=== PATIENT | female | born 1935 | race Two or more races ===

== ENCOUNTER 2019-05-02 06:43 | Day surgery (SDC) | payer MEDICAID, MEDICARE ==
--- NOTE | 2019-05-01 12:21 | NUR ---
[employer] translation services used to obtained medical history with paleologist Kat ID# [id number].
--- NOTE | 2019-05-01 15:10 | Pre-Procedure Note/Attestation ---
Pre-Procedure Note/Attestation Complete Prior to Procedure Planned Procedure: right Procedure Narrative: Cataract extraction with intraocular lens implant right eye Indications for Procedure Pre-Operative Diagnosis: Nuclear Sclerotic Cataract Right Eye Attestation I attest that I discussed the nature of the procedure; its benefits; risks and complications; and alternatives (and the risks and benefits of such alternatives ), prior to the procedure, with the patient (or the patient's legal service center representative). I attest that, if there was a reasonable possibility of needing a blood transfusion, the patient (or the patient's legal service center representative) was given the [facility] standardized written summary, pursuant to the Abdulaziz Reji Blood Safety Act ([place] Health and Safety Code # 1645, as amended). I attest that I re-evaluated the patient just prior to the surgery and that there has been no change in the patient's H&P, except as documented below: Tripp Muñoz MD May 01, 2019 15:10
--- NOTE | 2019-05-01 15:12 | Opthalmology H&P ---
Ophthalmology H&P H&P Chief Complaint: decreased vision in right eye HPI Vision Affects Ability to: read, watch TV, manage personal affairs HPI Narrative Blurry vision Exam Visual Acuity: OD 20/200 OS 20/40 Tension: OD 16 OS 17 Eye Exam: normal OU: external exam, palpebral fissure-width, marginal reflex distance, levator function, corneas, anterior chambers, lens - NS Cataract OU, fundus exam - NPDR OS /ERM OU; findings: lens - NS Cataract OU, fundus exam - NPDR OS /ERM OU Assessment/Plan Treatment Plan: cataract extraction w/ lens implant Goals of Treatment: improvement of vision, enhance quality of life Attestation Attestation The risks and benefits of the surgery as well as alternative procedures were explained to the patient in detail. Tripp Muñoz MD May 01, 2019 15:12
[2019-05-02] VITALS (11 sets, daily range): BP systolic 129–160; BP diastolic 57–82
[~2019-05-02] VITALS: Ht 154.9 cm; Wt 55.8 kg
[~2019-05-02 06:43] MED LIST: GLUCOSAMINE1000 M1 PO; LISINOPRIL5 MG ORAL; OMEGA-31000 M1 PO; ZOCOR10 MG ORAL
[2019-05-02] MEDS ORDERED: Akten 3.5% 1ml Btl RIGHT EYE ONE (07:00)
[2019-05-02] MEDS ORDERED: Proparacaine 0.5% Opth Soln 15ml RIGHT EYE ONE (07:00)
[2019-05-02] MEDS ORDERED: Pilocarpine 1% Opth 15ml Soln ONE (07:00)
[2019-05-02] MEDS ORDERED: Tetracaine 0.5% Opth 4ml Soln RIGHT EYE ONE (07:00)
[2019-05-02] MEDS ORDERED: Maxitrol Opth Oint 3.5gm ONE (07:00)
[2019-05-02] MEDS ORDERED: Pred Forte 1% Opth Susp 1ml ONE (07:00)
[2019-05-02] MEDS ORDERED: Dexamethasone 4mg/ml vial ONE (07:00)
[2019-05-02] MEDS: Phenylephrine 10% Opth Soln 5ml RIGHT EYE SCH ×3 (08:31→09:02)
[2019-05-02] MEDS: Cyclopentolate 1% Opth Sol 2ml RIGHT EYE SCH ×3 (08:32→09:01)
[2019-05-02] MEDS: Tropicamide 1% Opth 15ml Soln RIGHT EYE SCH ×3 (08:34→09:01)
[2019-05-02] MEDS: Diclofenac Sod 0.1% Op Soln RIGHT EYE SCH ×3 (08:34→09:02)
[2019-05-02] MEDS: Tobramycin Op Soln 0.3% 5ml RIGHT EYE SCH ×3 (08:35→09:02)
[2019-05-02] MEDS ORDERED: EPINEPHrine 1mg/1ml Amp ONE (09:31)
[2019-05-02] MEDS ORDERED: Povidone-Iodine 5% opth solution ONE (09:32)
[2019-05-02] MEDS ORDERED: Sodium Hyaluronate 14 mg/ml 0.85ml ONE (09:32)
[2019-05-02] MEDS ORDERED: BSS 500ml btl ONE (09:32)
[2019-05-02] MEDS ORDERED: BSS 15ml BTL ONE (09:32)
[2019-05-02] MEDS ORDERED: LR 1000ml ONE (11:00)
[2019-05-02] MEDS ORDERED: NS Irrig 1000ml ONE (11:00)
[2019-05-02] MEDS ORDERED: Sterile Water Irrig 1000ml IRRIG ONE (11:00)
[2019-05-02] MEDS ORDERED: fentaNYL 100 mcg/2 mL IV ONE (11:17)
[2019-05-02] MEDS ORDERED: Midazolam 2mg/2ml Inj ONE (11:19)
--- NOTE | 2019-05-02 11:35 | Anethesia Preoperative Eval ---
Anesthesia Pre-op PMH/ROS General Date of Evaluation: May 02, 2019 Time of Evaluation: 10:25 Anesthesiologist: shoshana ASA Score: ASA 2 Mallampati Score Class I : Soft palate, uvula, fauces, pillars visible Class II: Soft palate, uvula, fauces visible Class III: Soft palate, base of uvula visible Class IV: Only hard plate visible Mallampati Classification: Class II Surgeon: cadence Diagnosis: cataract Surgical Procedure: cataract extraction Anesthesia History: none Family History: no anesthesia problems Allergies: Coded Allergies: SULFA (SULFONAMIDE ANTIBIOTICS) (Verified Allergy, Mild, rash, 05/01/19) Medications: see eMAR Patient NPO?: Yes NPO Date: May 02, 2019 NPO Time: 00:01 Past Medical History Cardiovascular: Reports: HTN; Denies: CAD, SC, valve dz, arrhythmia, other Pulmonary: Denies: asthma, COPD, LAURIE, other Gastrointestinal/Genitourinary: Denies: GERD, CRI, ESRD, other Neurologic/Psychiatric: Denies: dementia, CVA, depression/anxiety, TIA, other Endocrine: Denies: DM, hypothyroidism, steroids, other HEENT: Reports: cataract (R); Denies: cataract (L), glaucoma, MI'KMAQ (L), MI'KMAQ (R), other Hematology/Immune: Denies: anemia, DVT, bleeding disorder, other Musculoskeletal/Integumentary: Denies: OA, RA, DJD, DDD, edema, other PSxH Narrative: see chart Anesthesia Pre-op Phys. Exam Physician Exam Last Vital Signs Date Time Temp Pulse Resp B/P (MAP) Pulse Ox O2 Delivery O2 Flow Rate FiO2 05/02/19 08:59 98.3 71 18 149/74 96 Room Air Constitutional: NAD Neurologic: CN 2-12 intact Cardiovascular: RRR Respiratory: CTA Gastrointestinal: S/NT/ND Airway Exam Mallampati Classification 2 Mallampati Score: Class II MO: full ROM: full Dentures: no upper, no lower Anesthesia Pre-op A/P Studies Pre-op Studies: EKG - sr Risk Assessment & Plan Assessment: denies sob; angina Plan: mac Status Change Before Surgery: No Pre-Antibiotics Drug: none Michelle Cline CRNA May 02, 2019 11:35
--- NOTE | 2019-05-02 12:20 | Immediate Post-Op Evaluation ---
Immediate Post-Op Evalulation Immediate Post-Op Evalulation Procedure: cataract extracton Date of Evaluation: May 02, 2019 Time of Evaluation: 12:08 IV Fluids: 300 Blood Pressure Systolic: 130 Blood Pressure Diastolic: 52 Pulse Rate: 70 Respiratory Rate: 14 Temperature (Fahrenheit): 98.0 Pain Score (1-10): 0 Nausea: No Vomiting: No Complications 0 Patient Status: awake, reacts Hydration Status: adequate Drug: none Michelle Cline CRNA May 02, 2019 12:20
--- NOTE | 2019-05-02 13:05 | 48 Hour Post Anesthesia Eval ---
Post Anesthesia Evaluation Procedure: cataract extracton Date of Evaluation: May 02, 2019 Time of Evaluation: 13:05 Blood Pressure Systolic: 137 0: 70 Pulse Rate: 90 Respiratory Rate: 14 O2 Sat by Pulse Oximetry: 98 Airway: patent Nausea: No Vomiting: No Hydration Status: adequate Cardiopulmonary Status: stable Mental Status/LOC: patient returned to baseline Follow-up Care/Observations: na Post-Anesthesia Complications: none Follow-up care needed: N/A Michelle Cline CRNA May 02, 2019 13:05
--- NOTE | 2019-05-05 14:00 | Brief Operative Note ---
Immediate Post Operative Note Operative Note Chief Complaint: Blurry vison Pre-op Diagnosis: Nuclear Sclerotic Cataract Right Eye Procedure: Cataract extraction with intraocular lens implant right eye Post-op Diagnosis: pseudophakia Post-op Diagnosis: same as pre-op Surgeon: Tripp Muñoz MD Anesthesiologist: Michelle Cline CRNA Anesthesia: MAC Specimen: none Complications: yes Condition: stable Fluids: LR Estimated Blood Loss: none Drains: none Implant(s) used?: Yes - IOL OD Tripp Muñoz MD May 05, 2019 14:00
--- NOTE | 2019-05-05 14:12 | Operative Note - PDOC ---
Operative Note Operative Note Date of Operation/Procedure: May 02, 2019 Chief Complaint: Blurry vison Pre-op Diagnosis: Nuclear Sclerotic Cataract Right Eye Procedure: Cataract extraction with intraocular lens implant right eye Post-op Diagnosis: pseudophakia Post-op Diagnosis: same as pre-op Surgeon: Tripp Muñoz MD Anesthesiologist: Michelle Cline CRNA Anesthesia: MAC Specimen: none Complications: yes Condition: stable Fluids: LR Estimated Blood Loss: none Drains: none Implant(s) used?: Yes - IOL-OD Indications for Procedure Nuclear Sclerotic Cataract Right Eye Description of Procedure This patient has been complaining of a visually significant dense cataract in the right eye with the best corrected visual acuity of 20/200 under moderate glare conditions worse. The patient complains of difficulties with glare in performing activities of daily living and wants to manage personal affairs with comfort and accuracy and see well enough to move with safety at home and outdoors independently. The risks, benefits and alternatives of the procedure were discussed with the patient in the office prior to scheduling surgery. All questions from the patient were answered after the surgical procedure was explained in detail. The risks of the procedure as explained to the patient include, but are not limited to, pain, infection, bleeding, loss of vision, retinal detachment, need for further surgery, loss of lens nucleus, double vision, etc. Alternative procedures were discussed which include, to do nothing or seek a second opinion. Informed consent for this procedure was obtained from the patient. The patient was referred to a primary care physician for a cardiopulmonary clearance prior to surgery, after proper evaluation was done patient was properly scheduled for outpatient surgery. The patient was brought to the operating room where the anesthesiologist established I.V. lines and cardiac monitoring leads. Mild intravenous sedation was administered. The patient was then prepared with a 5% solution of povidone -iodine to the conjunctival fornix and lashes, and a 5% solution of povidone- iodine to the lids and periorbital skin. The patient was then draped in the usual sterile fashion. A lid speculum was then placed in the operative eye. A keratome blade was then used to create a biplanar incision into the anterior chamber. Viscoelastics was then instilled into the anterior chamber. A 3-mm single pass clear corneal incision was made just anterior to the vascular arcade of the temporal limbus using a keratome. Anterior capsulorrhexis was created. The nucleus was hydrodissected and hydrodelineated, with slight complication . The lens nucleus was then phacoemulsified. Following the deep groove formation, the lens was split bimanually and the resultant quadrants and epicortex removed under vacuum burst-mode phacoemulsification. Peripheral cortex was removed with the irrigation and aspiration handpiece. The capsular bag was expanded with viscoelastic. The implant was check for proper power and sized. The implant was inspected under the microscope and found to be free of defects. The implant was inserted into the cartridge system under viscoelastic and placed in the capsular bag. The trailing haptic was positioned with the cartridge system. Viscoelastics was removed from the anterior chamber using the irrigation and aspiration unit. The corneal wound was then tested for leaks and none were found. The lid speculum were then removed. Sponge and needle counts were correct. An eye patch and shield were placed over the operative eye. The patient was taken to the recovery room in stable condition. The patient tolerated the procedure well. The patient was then transferred to the ambulatory surgery unit in stable and satisfactory condition, was given detailed written instructions and asked to follow up in the office the next day. Tripp Muñoz MD May 05, 2019 14:12
== END 2019-05-02 14:10 | disposition home or self-care (01) ==
LOC: SUR 06:43
DX: H25.11 Age-related nuclear cataract, right eye (principal); M19.90 Unspecified osteoarthritis, unspecified site; I10 Essential (primary) hypertension; E78.00 Pure hypercholesterolemia, unspecified; E03.9 Hypothyroidism, unspecified; Z88.2 Allergy status to sulfonamides
CPT/HCPCS: 66984; J0171; J1100; J2250; J3010; J3370; V2632; 94003; 94150